=== PATIENT | female | born 1985 | race Caucasian/White ===

== ENCOUNTER → 2018-10-22 | Outpatient (REF) | payer SELFPAY, OTHER ==
[2018-10-28 14:17] LABS: HPV HYBRID CAPTURE II Positive (Negative)
== END ==
LOC: M LAB REF 19:00
DX: Z12.4 Encounter for screening for malignant neoplasm of cervix (principal); R87.610 Atypical squamous cells of undetermined significance on cytologic smear of cervix (ASC-US); R87.810 Cervical high risk human papillomavirus (HPV) DNA test positive
CPT/HCPCS: G0123

== ENCOUNTER → 2018-11-19 | Outpatient (REF) | payer OTHER, SELFPAY | LOC: M LAB REF 11:03 | PROVIDERS: ATTEND Obstetrics & Gynecology | DX: R87.610 Atypical squamous cells of undetermined significance on cytologic smear of cervix (ASC-US) (principal) ==

== ENCOUNTER → 2019-03-12 | Outpatient (REF) | payer OTHER ==
[2019-03-12 17:17] LABS: BASO # 0.1 10^3/uL (0.0-0.2); BASO % 0.8 % (0.0-1.0); EOS # 0.2 10^3/uL (0.0-0.50); EOS % 3.1 % (0.0-3.0); HEMATOCRIT 41.3 % (36.0-47.0); HEMOGLOBIN 13.7 g/dl (12.0-15.5); LYMPH % 31.6 % (24.0-44.0); MEAN CORPUSCULAR HEMOGLOBIN 30.9 pg (27.0-33.0); MEAN CORPUSCULAR HGB CONC 33.2 g/dl (32.0-36.5); MEAN CORPUSCULAR VOLUME 93.2 fl (80.0-96.0); MONO # 0.6 10^3/uL (0.0-0.8); MONO % 9.2 % (0.0-5.0); NEUTROPHILS # 3.4 10^3/uL (1.8-7.7); NEUTROPHILS % 55.1 % (36.0-66.0); PLATELET COUNT, AUTOMATED 309 10^3/uL (150-450); RED BLOOD COUNT 4.43 10^6/uL (4.00-5.40); WHITE BLOOD COUNT 6.2 10^3/uL (4.0-10.0)
[2019-03-12 17:42] LABS: ALT/SGPT 24 U/L (12-78); BILIRUBIN,TOTAL 0.6 MG/DL (0.2-1.0); BLOOD UREA NITROGEN 9 MG/DL (7-18); CALCIUM LEVEL 8.5 MG/DL (8.5-10.1); CARBON DIOXIDE LEVEL 30 MEQ/L (21-32); CHLORIDE LEVEL 107 MEQ/L (98-107); CREATININE FOR GFR 0.65 MG/DL (0.55-1.30); GLOMERULAR FILTRATION RATE > 60.0 (>60); GLUCOSE, FASTING 80 MG/DL (70-100); POTASSIUM SERUM 4.1 MEQ/L (3.5-5.1); SODIUM LEVEL 141 MEQ/L (136-145); TOTAL PROTEIN 7.6 GM/DL (6.4-8.2)
== END ==
LOC: M SFHCLERA 13:41
PROVIDERS: ATTEND Family Medicine
DX: R19.7 Diarrhea, unspecified (principal)

== ENCOUNTER → 2019-03-16 | Outpatient (CLI) | payer OTHER ==
[~2019-03-16] MED LIST: ISOVUE-370 76% 100ML VIAL (Q9967) As Ordered ONE
--- NOTE | 2019-03-16 14:48 | REP ---
HYSTEROSALPINGOGRAM: FOUR VIEWS. HISTORY: Infertility. PROCEDURE: Fluoroscopic spot radiographs were obtained during the contrast injection. Endometrium is cannulated by the referring rn informatics. FINDINGS: A normal-appearing endometrial cavity is observed. Uterus is tipped slightly to the left. Isthmic and ampullary segments of the fallopian tubes are morphologically normal. Bilateral peritoneal spillage was promptly observed. No filling defect is seen. IMPRESSION: Normal hysterosalpingogram. 0.2 minutes of fluoroscopy time was utilized. Electronically Signed by Shiva Ortiz MD 03/16/2019 05:11 P
== END ==
LOC: M RADPRO 12:21
PROVIDERS: ATTEND Obstetrics & Gynecology
DX: N97.0 Female infertility associated with anovulation (principal)
CPT/HCPCS: 58340; 74740; Q9967

== ENCOUNTER → 2019-06-17 | Outpatient (CLI) | payer OTHER | LOC: M SMT 08:16 | PROVIDERS: ATTEND Obstetrics & Gynecology | DX: N91.2 Amenorrhea, unspecified (principal) ==

== ENCOUNTER → 2019-06-19 | Outpatient (CLI) | payer OTHER | LOC: M SMT 12:10 | PROVIDERS: ATTEND Obstetrics & Gynecology | DX: N91.2 Amenorrhea, unspecified (principal) ==

== ENCOUNTER → 2019-07-15 | Outpatient (CLI) | payer OTHER ==
[2019-07-15 13:57] LABS: BASO # 0.1 10^3/uL (0.0-0.2); BASO % 0.6 % (0.0-1.0); EOS # 0.1 10^3/uL (0.0-0.5); EOS % 0.9 % (0.0-3.0); HEMATOCRIT 43.2 % (36.0-47.0); HEMOGLOBIN 14.8 g/dl (12.0-15.5); LYMPH # 1.9 10^3/uL (1.5-5.0); LYMPH % 17.8 % (24.0-44.0); MEAN CORPUSCULAR HEMOGLOBIN 31.6 pg (27.0-33.0); MEAN CORPUSCULAR HGB CONC 34.3 g/dl (32.0-36.5); MEAN CORPUSCULAR VOLUME 92.1 fl (80.0-96.0); MONO # 0.8 10^3/uL (0.0-0.8); MONO % 7.7 % (0.0-5.0); NEUTROPHILS # 7.7 10^3/uL (1.5-8.5); NEUTROPHILS % 72.6 % (36.0-66.0); PLATELET COUNT, AUTOMATED 324 10^3/uL (150-450); RED BLOOD COUNT 4.69 10^6/uL (4.00-5.40); WHITE BLOOD COUNT 10.5 10^3/uL (4.0-10.0)
[2019-07-15 14:25] LABS: CREATININE,RANDOM URINE 69.9 MG/DL
[2019-07-15 15:13] LABS: CHLAMYDIA DNA AMPLIFICATION NEGATIVE (NEGATIVE); GC DNA AMPLIFICATION NEGATIVE (NEGATIVE)
[2019-07-16 14:07] LABS: SSA SJOGRENS A <0.2 AI (0.0-0.9); SSB SJOGRENS B <0.2 AI (0.0-0.9)
[2019-07-16 23:01] LABS: RUBELLA IgG QUALITATIVE IMMUNE (IMMUNE)
[2019-07-17 13:03] LABS: HIV 1&2 SCREEN CENTAUR NEGATIVE (NEGATIVE)
== END ==
LOC: M SMT 12:08
PROVIDERS: ATTEND Obstetrics & Gynecology
DX: Z34.81 Encounter for supervision of other normal pregnancy, first trimester (principal); Z3A.00 Weeks of gestation of pregnancy not specified

== ENCOUNTER → 2019-09-30 | Outpatient (CLI) | payer OTHER ==
--- NOTE | 2019-09-30 17:33 | REP ---
OB ULTRASOUND: Real-time sonographic evaluation of the gravid uterus is performed. There is a single living intrauterine gestation. The estimated gestational age is 20 weeks 2 days based today's ultrasound. EDC 02/15/2020. BPD 47 mm = 20 weeks 0 days HC 181 mm = 20 weeks 3 days AC 142 mm= 19 weeks 4 days Femur length 34 mm = 20 weeks 6 days HC/AC ratio 1.27 above normal range of 1.06 to 1.24. Estimated weight 337 grams, 43rd percentile. Cervix is closed measures 3.5 cm in length. heart rate 147 beats per minute. SEEN/GROSSLY UNREMARKABLE Lateral ventricles Yes Posterior fossa Yes Upper lip No Four-chamber heart Yes LVOT No RVOT No Stomach Yes Cord insertion Yes Three vessel cord Yes Kidneys Yes Bladder Yes Spine Yes position: Vertex. Placenta: Posterior and fundal and grade 0 with no previa or abruption. Amniotic fluid: Within normal limits. Electronically Signed by Aaron Kern MD 10/01/2019 11:28 A
== END ==
LOC: M LRY 13:50
PROVIDERS: ATTEND Advanced Practice Midwife
DX: Z34.02 Encounter for supervision of normal first pregnancy, second trimester (principal); Z3A.20 20 weeks gestation of pregnancy

== ENCOUNTER → 2019-10-28 | Outpatient (CLI) | payer OTHER ==
--- NOTE | 2019-10-28 16:34 | REP ---
Obstetric sonography: History: Second trimester study, supervision of , followup anatomy upper lip and outflow tracts. Findings: Scanning through the gravid uterus demonstrates a viable single intrauterine gestation in a cephalic lie. motion is observed and heart rate is recorded at 160 beats per minute. A posterior fundal grade 0 placenta is seen without evidence of previa or abruption. Amniotic fluid is subjectively normal. Closed cervical length is measured transabdominally at 3.4 cm. No extrauterine abnormalities observed. The umbilical cord is seen draping across the shoulders. No anomaly is seen. Cardiac outflow tracts are still less than optimally visualized. The following additional anatomic structures are identified today and felt to be unremarkable: cranium, choroid plexus, cavum, cerebellum and posterior fossa, face and profile, lungs, four-chamber heart, diaphragm, left-sided stomach, three-vessel cord, kidneys and bladder, spine, upper and lower extremities. Biometry chart: BPD 6.1 cm = 24 weeks 4 days HC 22.7 cm = 24 weeks 5 days AC 19.8 cm = 24 weeks 3 days FL 4.6 cm = 25 weeks 2 days HL 4.3 cm = 25 weeks 5 days CD 2.5 cm = 22 weeks 6 days HC/AC ratio normal 1.15. Cephalic index normal 0.74. Estimated weight 734 grams, 1 pound 9 ounces, 59th percentile for 24 weeks 2 days. Impression: Viable single intrauterine gestation at 24 weeks 3 days by today's composite sonographic criteria. There is appropriate interval growth. Expected gestational age estimate based on prior sonography is 24 weeks 2 days. RUTH by prior sonography February 15, 2020. face and profile are normal. Left and right ventricular cardiac outflow tract views are still less than optimally seen due to position. Four-chamber heart view is unremarkable. Electronically Signed by Shiva Ortiz MD 10/28/2019 05:52 P
== END ==
LOC: M LRY 12:40
PROVIDERS: ATTEND Advanced Practice Midwife
DX: Z34.92 Encounter for supervision of normal pregnancy, unspecified, second trimester (principal); Z3A.24 24 weeks gestation of pregnancy

== ENCOUNTER → 2019-11-27 | Outpatient (REF) | payer OTHER ==
[2019-11-27 20:22] LABS: HEMATOCRIT 37.9 % (36.0-47.0); HEMOGLOBIN 12.2 g/dl (12.0-15.5); MEAN CORPUSCULAR HEMOGLOBIN 30.9 pg (27.0-33.0); MEAN CORPUSCULAR HGB CONC 32.2 g/dl (32.0-36.5); MEAN CORPUSCULAR VOLUME 95.9 fl (80.0-96.0); PLATELET COUNT, AUTOMATED 282 10^3/uL (150-450); RED BLOOD COUNT 3.95 10^6/uL (4.00-5.40)
== END ==
LOC: M SFHCPLAZ 09:33
PROVIDERS: ATTEND Advanced Practice Midwife
DX: Z34.92 Encounter for supervision of normal pregnancy, unspecified, second trimester (principal)

== ENCOUNTER → 2019-12-03 | Outpatient (CLI) | payer OTHER ==
--- NOTE | 2019-12-03 17:05 | REP ---
Right upper extremity deep vein duplex ultrasound The deep veins demonstrate normal compression, normal Doppler color flow and normal Doppler waveforms with respiration augmentation at multiple levels from the brachial veins to the jugular vein. Impression: There is no deep vein thrombus. Additional imaging is performed over the dorsum of the wrist in the area of swelling. There is no evidence of venous thrombosis, nodule, mass or cyst in this location. Impression: Negative study. No venous thrombosis. Electronically Signed by Aaron Michelle MD 12/03/2019 04:57 P
== END ==
LOC: M RAD 15:57
PROVIDERS: ATTEND Family Medicine
DX: M25.531 Pain in right wrist (principal)

== ENCOUNTER → 2019-12-09 | Outpatient (CLI) | payer OTHER ==
--- NOTE | 2019-12-10 04:45 | REP ---
Clinical: Anatomical evaluation. Comparison: 10/28/2019. Findings: Examination demonstrates a single live intrauterine in breech presentation. motion is identified by technologist. Placenta is noted posterior/fundal and grade zero without evidence for placenta previa or abruption. Amniotic fluid volume is normal. Cervix measures 3.9 cm in length and appears closed. No evidence for nuchal cord. Gestational age by LMP 28 weeks 4 days with RUTH 02/20/2020 . Gestational age by current measurements 28 weeks 1 day with RUTH 02/23/2020 . FHR equals 144 beats per minute. Estimated weight 1242 grams ( 40th percentile). Amniotic fluid index: 11.8 cm Anatomical assessment demonstrates normal structures including four-chamber heart/ventricular outflow tracts. Impression: Single live intrauterine in breech presentation demonstrating appropriate interval growth. In conjunction with prior examination anatomical assessment is complete and normal.
== END ==
LOC: M WHC 15:03
PROVIDERS: ATTEND Advanced Practice Midwife
DX: Z36.2 Encounter for other antenatal screening follow-up (principal); Z3A.28 28 weeks gestation of pregnancy

== ENCOUNTER → 2020-02-03 | Outpatient (REF) | payer OTHER | LOC: M SFHCWAGY 12:53 | PROVIDERS: ATTEND Specialist | DX: Z36.85 Encounter for antenatal screening for Streptococcus B (principal) ==

== ENCOUNTER 2020-03-02 23:22 | Inpatient (IN) | payer OTHER ==
[~2020-03-02] VITALS: Ht 177.8 cm; Wt 92.2 kg
[2020-03-02 23:46] VITALS: BP 129/81
[2020-03-03] VITALS (16 sets, daily range): BP systolic 104–138; BP diastolic 58–79
[2020-03-03] MEDS ORDERED: PRENTAB9 PO (00:34)
[2020-03-03] MEDS: miSOPROStol 50 MCG 1/2 TAB (S0191) SL SCH ×4 (00:47→13:34)
[2020-03-03 00:51] LABS: HEMATOCRIT 37.4 % (36.0-47.0); HEMOGLOBIN 12.5 g/dl (12.0-15.5); MEAN CORPUSCULAR HEMOGLOBIN 29.9 pg (27.0-33.0); MEAN CORPUSCULAR HGB CONC 33.4 g/dl (32.0-36.5); MEAN CORPUSCULAR VOLUME 89.5 fl (80.0-96.0); PLATELET COUNT, AUTOMATED 239 10^3/uL (150-450); RED BLOOD COUNT 4.18 10^6/uL (4.00-5.40); WHITE BLOOD COUNT 11.5 10^3/uL (4.0-10.0)
--- NOTE | 2020-03-03 06:20 | HPE ---
DATE OF ADMISSION: 03/02/2020 34-year-old, (G) 1, para (P) 0 female at 40 and 5/7 weeks gestation by 7 week ultrasound, expected date of confinement (EDC) of 02/27/2020 who presents for labor induction. The patient has occasional contractions. She denies vaginal bleeding. COURSE: The patient initiated care with [facility]. She had no complications. MEDICAL HISTORY: Connective tissue disorder. SURGICAL HISTORY: 1. Tonsillectomy. 2. [place] teeth. 3. Lasik eye surgery. ALLERGIES: No known drug allergies. SOCIAL HISTORY: The patient lives in [place]. She is . She denies cigarettes, alcohol or drug use. FAMILY HISTORY: Noncontributory. PHYSICAL EXAMINATION: Blood pressure 134/74. Pulse 84. She is in no apparent distress. Head and Neck Exam: Normal. Lungs: Clear. Heart: Regular rate and rhythm. Abdomen: Nontender. Gravid. heart tones Category 1. Sterile Vaginal Exam: 1 cm, 50%, -2, posterior, soft, vertex. Extremities: Nontender. LABS: Blood type O positive. GBS negative. ASSESSMENT: 34-year-old, G1, at 40 and 5/7 weeks gestation who presents for labor induction. PLAN: The patient is admitted on 03/02/2020. Risks of induction were discussed.
[2020-03-03] MEDS ORDERED: LR 1,000 ML IV SCH (17:02)
[2020-03-03] MEDS ORDERED: OXYTOCIN DRIP 30 UNITS in IV 1 EA IV SCH (17:15)
[2020-03-04] VITALS (31 sets, daily range): BP systolic 93–144; BP diastolic 58–83
[2020-03-04] MEDS ORDERED: FENTANYL 2MCG/ML ROPIVACAINE 0.2% IN 0.9% NACL 100ML IVBAG As Ordered ONE (00:24)
[2020-03-04] MEDS ORDERED: EPIDURAL COMMENT XX SCH (01:45)
[2020-03-04] MEDS ORDERED: diphenhydrAMINE 50MG/ML VIAL (J1200) IV PRN (01:45)
[2020-03-04] MEDS ORDERED: LACTATED RINGER'S 1000 ML IV PRN (01:45)
[2020-03-04] MEDS ORDERED: FENTANYL/ROPIVACAINE/NACL BAG 100 ML EPIDURAL SCH (01:45)
[2020-03-04] MEDS ORDERED: REFRIGERATOR IV KEYS XX PRN (01:45)
[2020-03-04] MEDS ORDERED: EPIDURAL/PCA KEYS XX PRN (01:45)
[2020-03-04] MEDS ORDERED: ONDANSETRON 4MG/2ML VIAL IV PRN ×2 (01:45→08:15)
[2020-03-04] MEDS ORDERED: NALOXONE INJ 0.4MG/1ML VIAL (J2310 PER 1MG) IV PRN (01:45)
[2020-03-04] MEDS ORDERED: ePHEDrine SULFATE 25 MG/5 ML(5MG/ML) SYRINGE IV PRN (01:45)
[2020-03-04] MEDS ORDERED: OXYTOCIN 30 UNITS IN 0.9% NaCl 500ML IV BAG (J2590) As Ordered ONE (07:45)
[2020-03-04] MEDS ORDERED: IBUPROFEN 600 MG TAB PO PRN (08:15)
[2020-03-04] MEDS ORDERED: miSOPROStol 200 MCG TAB (S0191) PR ONE (08:15)
[2020-03-04] MEDS ORDERED: DOCUSATE SODIUM 100 MG CAP PO PRN (08:15)
[2020-03-04] MEDS ORDERED: OXYTOCIN DRIP 30 UNITS in IV 1 EA IV ONE (08:15)
[2020-03-04] MEDS ORDERED: METHYLERGONOVINE MALEATE 0.2 MG TAB PO PRN (08:15)
[2020-03-04] MEDS ORDERED: ACETAMINOPHEN 500 MG TAB PO PRN (08:15)
[2020-03-04] MEDS ORDERED: MEASLES,MUMPS,RUBELLA VACCINE INJ (MMR-II) (90707) SC SCH (08:15)
[2020-03-04] MEDS ORDERED: DIBUCAINE 1% OINTMENT 30GM TOP PRN (08:15)
[2020-03-04] MEDS ORDERED: LIDOCAINE 1% MDV 20ML VIAL INFIL ONE (08:15)
[2020-03-04] MEDS ORDERED: RHOGAM 300 MCG (1500 IU) INJ (J2790) IM SCH (08:15)
[2020-03-04] MEDS ORDERED: ACETAMINOPHEN TAB 650MG DOSE (2X325MG) PO PRN (08:15)
[2020-03-04] MEDS: PRENATAL VITAMINS CHEWABLE TABLET PO SCH (08:47)
[2020-03-04] MEDS: IBUPROFEN 800 MG TAB PO PRN ×3 (08:47→23:58)
[2020-03-05 05:49] VITALS: BP 112/63
--- NOTE | 2020-03-05 07:56 | IPNPDOC ---
Text Note Date of Service The patient was seen on 03/05/20. NOTE PP#1 Feels well. Adequate pain management. . Voiding VSS, afebrile,normotensive Breasts soft,nipples intact Fundus firm, NT, down 1 FB Lochia rubra scant without odor PP#1 Routine care. Would like to consider discharge this pm if discharged. Otherwise, D/C in am VS,Fishbone, I+O VS, Fishbone, I+O Vital Signs Date Time Temp Pulse Resp B/P (MAP) Pulse Ox O2 Delivery O2 Flow Rate FiO2 03/05/20 05:49 98.2 68 18 112/63 (79) 03/04/20 08:12 98 Room Air I&O- Last 24 Hours up to 6 AM 03/05/20 06:00 Intake Total 3643 ml Output Total 800 ml Balance 2843 ml Phyllis Theodore CNM Mar 05, 2020 07:56
[2020-03-05] MEDS: PRENATAL VITAMINS CHEWABLE TABLET PO SCH (08:26)
--- NOTE | 2020-03-05 09:37 | DN ---
DATE OF DELIVERY: 03/04/2020 PREDELIVERY DIAGNOSIS: 40 weeks , labor induction. POSTDELIVERY DIAGNOSIS: Delivered. PROCEDURE: Spontaneous vaginal delivery. CONVEX GRINDER OPERATOR: Maurizio Reddy MD ANESTHESIA: Epidural. ESTIMATED BLOOD LOSS: 300 mL. FINDINGS: 4300 gram, 9 pound 8 ounce, male infant, Apgars 8 and 9. DELIVERY SUMMARY: After 3 hours second stage of labor, the patient had spontaneously delivery of a 9 pound 8 ounce male infant, Apgars 8 and 9, under epidural anesthesia. There was no nuchal cord. The shoulders delivered with ease. The was handed to the mother and cried immediately. The cord was doubly clamped and cut. The placenta delivered spontaneously and appeared to be intact. The patient received IV Pitocin immediately after delivery of the placenta. Mild uterine atony was encountered. The patient was given 800 mcg of Cytotec per rectum. Uterine tone was noted to be improved. A first degree perineal laceration was repaired with #2-0 chromic in the usual fashion. Local anesthesia was utilized. Sponge and needle counts were correct.
[2020-03-05] MEDS: IBUPROFEN 800 MG TAB PO PRN (11:57)
--- NOTE | 2020-03-07 14:35 | IPN ---
DATE: This lady requested circumcision of her male . After discussing risks and benefits of the circumcision, the medical and nonmedical indication of penile block and aftercare expressed understanding of penile block, aftercare and bleeding, signed the consent form. All questions were answered. 20-minute discussion. We await the clearance by the sales correspondence clerk.
== END 2020-03-05 14:00 | disposition home or self-care (01) | DRG 807 ==
LOC: EEVIPCON 23:22 → M LDI 23:22 → M OBS 03-04 10:17
PROVIDERS: ADMIT Specialist; ATTEND Specialist
PROC: 3E0P7GC Introduction of Other Therapeutic Substance into Female Reproductive, Via Natural or Artificial Opening (ICD-10-PCS; 2020-03-02)
PROC: 10E0XZZ Delivery of Products of Conception, External Approach (ICD-10-PCS; principal; 2020-03-04)
PROC: 0HQ9XZZ Repair Perineum Skin, External Approach (ICD-10-PCS; 2020-03-04)
DX: O48.0 Post-term pregnancy (principal); Z37.0 Single live birth; Z3A.40 40 weeks gestation of pregnancy

== ENCOUNTER → 2020-07-20 | Outpatient (REF) | payer OTHER ==
[~2020-07-20] MED LIST changes: -ISOVUE-370 76% 100ML VIAL (Q9967) As Ordered ONE; +PRENTAB9 PO
== END ==
LOC: M SFHCWAGY 19:19
PROVIDERS: ATTEND Specialist
DX: Z12.4 Encounter for screening for malignant neoplasm of cervix (principal)

== ENCOUNTER → 2021-04-04 | Outpatient (REF) | payer OTHER | LOC: M PLALAB 12:20 | PROVIDERS: ATTEND Obstetrics & Gynecology | DX: N92.0 Excessive and frequent menstruation with regular cycle (principal) ==

== ENCOUNTER → 2021-04-17 | Outpatient (REF) | payer OTHER | LOC: M PLALAB 12:14 | PROVIDERS: ATTEND Obstetrics & Gynecology | DX: O36.80X0 Pregnancy with inconclusive fetal viability, not applicable or unspecified (principal) ==

== ENCOUNTER → 2021-04-19 | Outpatient (REF) | payer OTHER | LOC: M PLALAB 12:51 | PROVIDERS: ATTEND Obstetrics & Gynecology | DX: O36.80X0 Pregnancy with inconclusive fetal viability, not applicable or unspecified (principal) ==

== ENCOUNTER → 2021-05-12 | Outpatient (REF) | payer OTHER | LOC: M PLALAB 12:25 | PROVIDERS: ATTEND Obstetrics & Gynecology | DX: Z3A.08 8 weeks gestation of pregnancy (principal); Z53.8 Procedure and treatment not carried out for other reasons ==

== ENCOUNTER → 2021-05-24 | Outpatient (CLI) | payer OTHER ==
[2021-05-24 17:30] LABS: HEMATOCRIT 40.5 % (36.0-47.0); MEAN CORPUSCULAR HGB CONC 34.6 g/dl (32.0-36.5); MEAN CORPUSCULAR VOLUME 89.6 fl (80.0-96.0); PLATELET COUNT, AUTOMATED 294 10^3/uL (150-450); RED BLOOD COUNT 4.52 10^6/uL (4.00-5.40); WHITE BLOOD COUNT 11.2 10^3/uL (4.0-10.0)
[2021-05-24 18:37] LABS: HEPATITIS C VIRUS ABY INDEX 0.1 INDEX (<0.8); HIV 1&2 SCREEN CENTAUR NEGATIVE (NEGATIVE)
[2021-05-24 19:04] LABS: GC DNA AMPLIFICATION NEGATIVE (NEGATIVE)
== END ==
LOC: M PLALAB 15:55
PROVIDERS: ATTEND Obstetrics & Gynecology
DX: Z34.91 Encounter for supervision of normal pregnancy, unspecified, first trimester (principal); Z3A.08 8 weeks gestation of pregnancy

== ENCOUNTER → 2021-05-24 | Outpatient (CLI) | payer OTHER | LOC: M PLALAB 16:00 | PROVIDERS: ATTEND Obstetrics & Gynecology | DX: Z34.81 Encounter for supervision of other normal pregnancy, first trimester (principal); Z3A.00 Weeks of gestation of pregnancy not specified ==

== ENCOUNTER → 2021-08-02 | Outpatient (CLI) | payer OTHER ==
--- NOTE | 2021-08-02 10:59 | REP ---
INDICATION: ANATOMY. COMPARISON: None. TECHNIQUE: Real-time sonographic evaluation of the gravid uterus performed. FINDINGS: Estimated gestational age is20 weeks 2 days, EDC 12/18/2021. Today's measurements indicate appropriate growth. Presentation: Variable Placenta posterior and fundal, grade 0, without evidence of placenta previa. heart rate is recorded at 146 beats per minute. Amniotic fluid is subjectively normal. Closed cervical length is measured at 3.5 cm. Biometry chart: BPD: 48 mm, 20 weeks 4 days, 57th percentile. HC: 178 mm, 20 weeks 2 days, 50th percentile AC: 156 mm, 20 weeks 6 days, 61st percentile Femur length: 33 mm, 20 weeks 3 days, 54th percentile HC to AC ratio: 1.14, normal range 1.06-1.24. Estimated weight: 365g, 63rd percentile. anatomy: Cranium: Grossly normal Lateral Ventricles/Choroid Plexus: Not dilated, a right choroid plexus cyst measures approximately 5 mm. Posterior Fossa/Cerebellum: Grossly normal Nose/lips/profile: Grossly normal Four chamber heart: Grossly normal Right ventricular outflow tract: Grossly normal Left ventricular outflow tract: Not well seen due to position Left-sided stomach: Grossly normal Kidneys: Grossly normal Bladder: Grossly normal Cord Insertion: Grossly normal 3 vessel cord: Grossly normal Spine: Not well seen due to position IMPRESSION: Viable single intrauterine gestation as above. <Electronically signed by Aaron Kern > 08/02/21 [id number]
== END ==
LOC: M WHC 09:08
PROVIDERS: ATTEND Specialist
DX: Z34.82 Encounter for supervision of other normal pregnancy, second trimester (principal); Z3A.20 20 weeks gestation of pregnancy

== ENCOUNTER → 2021-08-28 | Outpatient (CLI) | payer OTHER ==
--- NOTE | 2021-08-28 20:30 | REP ---
INDICATION: F/U ANATOMY COMPARISON: 08/02/2021 TECHNIQUE: Transabdominal obstetrical ultrasound with color Doppler evaluation. FINDINGS: Examination demonstrates a single live intrauterine in cephalic presentation. motion is identified by technologist. Placenta is noted fundal and grade 1 without evidence for placenta previa or abruption. Amniotic fluid volume is normal. Cervix measures 3.9 cm in length and appears closed.. Selected gestational age: 24 weeks 0 days with RUTH 12/18/2021. Gestational age by current measurements 24 weeks 4 days with RUTH 12/14/2021. FHR equals 144 beats per minute. Estimated weight 701 grams (64thpercentile). Anatomical assessment demonstrates normal structures including choroid plexus, left cardiac ventricular outflow tract, and spine. IMPRESSION: Single live intrauterine in cephalic presentation demonstrating appropriate estimated weight and growth. Previous choroid plexus cyst resolved. In conjunction with prior examination anatomical assessment is complete and normal. <Electronically signed by Rakesh Oneil > 08/28/212025
== END ==
LOC: M WHC 12:08
PROVIDERS: ATTEND Obstetrics & Gynecology
DX: Z36.89 Encounter for other specified antenatal screening (principal); Z3A.24 24 weeks gestation of pregnancy

== ENCOUNTER → 2021-09-18 | Outpatient (REF) | payer OTHER | LOC: M SFHCLERA 15:41 | PROVIDERS: ATTEND Family Medicine | DX: J02.9 Acute pharyngitis, unspecified (principal) ==

== ENCOUNTER → 2021-10-18 | Outpatient (CLI) | payer OTHER ==
[2021-10-18 13:15] LABS: HEMATOCRIT 40.3 % (36.0-47.0); HEMOGLOBIN 13.4 g/dl (12.0-15.5); MEAN CORPUSCULAR HEMOGLOBIN 30.7 pg (27.0-33.0); MEAN CORPUSCULAR HGB CONC 33.3 g/dl (32.0-36.5); MEAN CORPUSCULAR VOLUME 92.2 fl (80.0-96.0); PLATELET COUNT, AUTOMATED 278 10^3/uL (150-450); RED BLOOD COUNT 4.37 10^6/uL (4.00-5.40); WHITE BLOOD COUNT 12.7 10^3/uL (4.0-10.0)
[2021-10-18 14:54] LABS: GC DNA AMPLIFICATION NEGATIVE (NEGATIVE)
== END ==
LOC: M PLALAB 11:04
PROVIDERS: ATTEND Specialist
DX: R73.01 Impaired fasting glucose (principal)

== ENCOUNTER → 2021-11-17 | Outpatient (CLI) | payer OTHER | LOC: M WHC 14:50 | PROVIDERS: ATTEND Specialist | DX: Z34.83 Encounter for supervision of other normal pregnancy, third trimester (principal); Z3A.36 36 weeks gestation of pregnancy ==

== ENCOUNTER → 2021-11-22 | Outpatient (REF) | payer OTHER | LOC: M SFHCWAGY 16:47 | PROVIDERS: ATTEND Obstetrics & Gynecology | DX: Z36.85 Encounter for antenatal screening for Streptococcus B (principal); Z3A.00 Weeks of gestation of pregnancy not specified | CPT/HCPCS: 87081; G0463 ==